=== PATIENT | female | born 1980 | race Caucasian/White ===

== ENCOUNTER 2016-05-08 09:56 | Emergency (ER) | payer BC ==
[~2016-05-08] VITALS: Ht 152.4 cm; Wt 85.0 kg
[~2016-05-08 09:56] MED LIST: ACET-1311; IBUP-1050; PRENTAB26
[2016-05-08 10:00] VITALS: Ht 152.4 cm; Wt 85.0 kg
[2016-05-08] MEDS ORDERED: ACET-1256 PO (10:15)
[2016-05-08] MEDS ORDERED: ONDANSETRON 4MG OD TAB PO STA (10:54)
[2016-05-08] MEDS ORDERED: OXYCODONE HCL IR 5 MG TAB (IMMEDIATE RELEASE) PO STA (10:54)
--- NOTE | 2016-05-08 10:57 | EMERGENCY ROOM VISIT NOTE ---
History Report prepared by Yeni: Cassidy Ibrahim Under the Supervision of: Dr. Tio Wilson D.O. First contact with patient: 10:24 Chief Complaint: BACK PAIN Stated Complaint: LOWER BACK PAIN LEFT SIDE History of Present Illness The patient is a 36 year old female who presents to the Emergency Room with complaints of constant left-sided flank pain for the past 2.5 hours. Her pain radiates into her left abdomen. She rates her pain as an 8/10 in severity. She notes fevers, chills, nausea, and two episodes of vomiting. The patient denies urinary symptoms and rash. She has had kidney stones in the past and states that this feels like her typical kidney stone. Her LNMP was a few months ago and she states that her chance for is slim due to PCOS. Source of History: patient Onset: 2.5 hours COOK FRY Position: other (left flank) Symptom Intensity: 8/10 Quality: other (radiating) Timing: constant Associated Symptoms: + abdominal pain, + chills, + fevers, + nausea, + vomiting, No rash, No urinary symptoms Review of Systems See above for pertinent positives & negatives. A total of 10 systems reviewed and were otherwise negative. Past Medical & Surgical Medical Problems: (1) Diabetes mellitus (2) History of kidney stones (3) PCOS (polycystic ovarian syndrome) Family History Diabetes mellitus Heart disease Social History Smoking Status: Never Smoker Smokeless Tobacco Use: No Alcohol Use: occasionally Marital Status: Housing Status: lives with significant other Occupation Status: employed Current/Historical Medications Scheduled Tamsulosin Hcl (Flomax), 0.4 MG PO DAILY Scheduled PRN Hydrocodon/Acetaminophen 5MG/300MG (Vicodin (5MG/300MG)), 2 TABS PO Q6H PRN for Pain Ibuprofen Tab (Motrin), 800 MG PO Q8H PRN for Pain Miscellaneous Medications Acetaminophen (Tylenol), 1,000 MG PO Allergies Coded Allergies: No Known Allergies (Verified , 05/08/16) Physical Exam Vital Signs Date Time Temp Pulse Resp B/P Pulse Ox O2 Delivery O2 Flow Rate FiO2 05/08/16 13:59 78 20 131/76 96 Room Air 05/08/16 11:51 66 20 127/80 97 Room Air 05/08/16 10:00 69 16 132/95 98 Physical Exam GENERAL: Patient is well appearing and in no acute distress. HEENT: No acute trauma, normocephalic atraumatic, mucous membranes moist, no nasal congestion, no scleral icterus. NECK: No stridor, no adenopathy, no meningismus, trachea is midline. LUNGS: No dyspnea. Clear to auscultation and equal bilaterally. No wheeze, no rhonchi. HEART: Regular rate and rhythm. No murmurs, rubs, gallops appreciated. ABDOMEN: Soft, nontender, bowel sounds positive, no masses appreciated, no peritonitis. BACK: No midline tenderness, no CVA tenderness, mild tenderness to palpation over the left flank. EXTREMITIES: Normal motion all extremities, no cyanosis, no edema. NEUROLOGIC: Alert and oriented, no acute motor or sensory deficits, no focal weakness, cranial nerves grossly intact. SKIN: No rash, no jaundice, no diaphoresis. Medical Decision & Procedures ER Provider Diagnostic Interpretation: Radiology results as stated below per my review and radiologist interpretation: ABDOMEN AND PELVIS CT WITHOUT CONTRAST CT DOSE: 1061.02 mGycm HISTORY: Flank pain r/o stone TECHNIQUE: Multiaxial CT images of the abdomen and pelvis were performed without the use of intravenous and oral contrast according to the standard department stone protocol. COMPARISON STUDY: None. FINDINGS: Mild dependent bibasilar atelectatic change. Configuration of liver spleen and pancreas appear unremarkable. Right kidney is negative for calcification or hydronephrosis. Left kidney shows moderate hydroureteronephrosis. There is a 5 mm obstructing mid left ureteral calculus. Bladder is midline. Uterus is anteflexed. There are no significant bladder calcifications. Bowel pattern is nonobstructive. The appendix is normal. IMPRESSION: 1. Obstructing calculus proximal to mid left ureter measuring 5 mm. 2. Moderate left hydroureteronephrosis. Electronically signed by: Sudheer Cazares M.D. 05/08/2016 11:21 AM Dictated Date/Time: 05/08/2016 11:18 AM Laboratory Results 05/08/16 12:15 Test 05/08/16 10:13 05/08/16 12:15 Urine Color DK YELLOW Urine Appearance TURBID (CLEAR) Urine pH 5.0 (4.5-7.5) Urine Specific [place] 1.027 (1.000-1.030) Urine Protein 1+ (NEG) Urine Glucose (UA) NEG (NEG) Urine Ketones NEG (NEG) Urine Occult Blood 3+ (NEG) Urine Nitrite NEG (NEG) Urine Bilirubin NEG (NEG) Urine Urobilinogen NEG (NEG) Urine Leukocyte Esterase SMALL (NEG) Urine WBC (Auto) 10-30 /hpf (0-5) Urine RBC (Auto) >30 /hpf (0-4) Urine Hyaline Casts (Auto) 1-5 /lpf (0-5) Urine Epithelial Cells (Auto) >30 /lpf (0-5) Urine Bacteria (Auto) 1+ (NEG) Urine Pathogenic Casts /lpf (0) Urine Mucus PRESENT (NONE PRSENT) Urine Yeast (Auto) (NONE PRSENT) Urine Test NEG (NEG) Anion Gap 10.0 mmol/L (3-11) Est Creatinine Clear Calc Drug Dose 62.1 ml/min Estimated GFR () 66.9 Estimated GFR (Non- 57.7 BUN/Creatinine Ratio 14.3 (10-20) Calcium Level 9.1 mg/dl (8.5-10.1) Laboratory results as reviewed by me. Medications Administered Medications (Trade) Dose Ordered Sig/Luigi Route Start Time Stop Time Status Last Admin Dose Admin Ondansetron HCl (Zofran Odt) 4 mg NOW STAT PO 05/08/16 10:54 05/08/16 10:55 DC 05/08/16 11:07 4 MG Oxycodone HCl (Roxicodone Immediate Rel Tab) 5 mg NOW STAT PO 05/08/16 10:54 05/08/16 10:55 DC 05/08/16 11:07 5 MG Hydromorphone HCl 0.5 mg 0.5 mg STK-MED ONCE .ROUTE 05/08/16 12:14 05/08/16 12:17 DC 05/08/16 12:14 0.5 MG Sodium Chloride (Nss 1000ml) 1,000 ml @ 999 mls/hr Q1H1M IV 05/08/16 12:30 05/08/16 14:30 DC 05/08/16 12:30 999 MLS/HR Ketorolac Tromethamine (Toradol Inj) 30 mg NOW STAT IV 05/08/16 12:17 05/08/16 12:19 DC 05/08/16 12:27 30 MG Promethazine HCl (Phenergan Inj) 25 mg NOW STAT IM 05/08/16 12:17 05/08/16 12:19 DC 05/08/16 12:29 25 MG ED Course 1030: The patient was evaluated in room A3. A complete history and physical exam was performed. 1054: Oxycodone HCl 5 mg PO, Zofran 4 mg PO 1214: I updated the patient on her CT results. She is now agreeable to an IV. She is requesting more pain medication due to worsening pain. 1217: Phenergan 25 mg IM, Dilaudid 0.5 mg IV, Toradol 30 mg IV 1230: NSS 1000 ml @ 999 mls/hr IV 1445: I reassessed the patient at this time. She is feeling better and resting comfortably. I discussed the results and treatment plan with the patient. I answered all pertaining questions that she had. She expressed understanding and verbalized agreement. The patient will be discharged home. Medical Decision Differential: Renal Colic, Pyelonephritis, Hydronephrosis, Appendicitis, Diverticulitis, Retroperitoneal Bleed/Infection, Aortic Pathology, MSK, Neurologic Pathology, amongst other pathologies entertained. Impression Primary Impression: Renal colic Additional Impression: Nausea & vomiting Scribe Attestation The scribe's documentation has been prepared under my direction and personally reviewed by me in its entirety. I confirm that the note above accurately reflects all work, treatment, procedures, and medical decision making performed by me. Departure Information Dispostion Home / Self-Care Prescriptions Ibuprofen Tab (MOTRIN) 800 Mg Tab 800 MG PO Q8H Y for Pain, #60 TAB Prov: Tio Wilson D.OTyler 05/08/16 Tamsulosin Hcl (FLOMAX) 0.4 Mg Cap 0.4 MG PO DAILY, #10 CAP Prov: Tio Wilson D.OTyler 05/08/16 Hydrocodon/Acetaminophen 5MG/300MG (VICODIN (5MG/300MG)) 1 Tab Tab 2 TABS PO Q6H Y for Pain, #20 TAB Prov: Tio Wilson D.O. 05/08/16 Referrals No Doctor, Assigned (PCP) Gin Mathew MD Follow-up in 1-2 weeks if you have not passed your kidney stone Forms HOME CARE DOCUMENTATION FORM, IMPORTANT VISIT INFORMATION Patient Instructions Kidney Stones, My [facility] Additional Instructions Strain all your urine. Return for fevers, inability to keep fluids down, or any other concerns. After still having issues in 1-2 weeks follow-up with urology as noted above. Work Instructions Return To Work: 1 day Problem Qualifiers Additional Impression: Nausea & vomiting Vomiting type: unspecified Vomiting Intractability: non-intractable Qualified Codes: R11.2 - Nausea with vomiting, unspecified
[2016-05-08 11:02] LABS: MANUAL MICROSCOPIC REQUIRED? NO; REVIEW REQ? YES; URINE APPEARANCE TURBID (CLEAR); URINE BILIRUBIN NEG (NEG); URINE COLOR DK YELLOW; URINE EPITHELIAL CELL AUTO >30 /lpf (0-5); URINE NITRITE NEG (NEG); URINE SPECIFIC GRAVITY 1.027 (1.000-1.030); UROBILINOGEN NEG (NEG)
[2016-05-08 11:14] LABS: PREG INTERNAL NEGATIVE QC NEG CLEAR BACKGROUND; PREG INTERNAL POSITIVE QC POS CONTROL LINE
[2016-05-08 11:18] LABS: URINE MUCUS PRESENT (NONE PRSENT)
--- NOTE | 2016-05-08 11:22 | DIAGNOSTIC IMAGING REPORT ---
ABDOMEN AND PELVIS CT WITHOUT CONTRAST CT DOSE: 1061.02 mGycm HISTORY: Flank pain r/o stone TECHNIQUE: Multiaxial CT images of the abdomen and pelvis were performed without the use of intravenous and oral contrast according to the standard department stone protocol. COMPARISON STUDY: None. FINDINGS: Mild dependent bibasilar atelectatic change. Configuration of liver spleen and pancreas appear unremarkable. Right kidney is negative for calcification or hydronephrosis. Left kidney shows moderate hydroureteronephrosis. There is a 5 mm obstructing mid left ureteral calculus. Bladder is midline. Uterus is anteflexed. There are no significant bladder calcifications. Bowel pattern is nonobstructive. The appendix is normal. IMPRESSION: 1. Obstructing calculus proximal to mid left ureter measuring 5 mm. 2. Moderate left hydroureteronephrosis. Electronically signed by: Sudheer Cazares M.D. 05/08/2016 11:21 AM Dictated Date/Time: 05/08/2016 11:18 AM
[2016-05-08] MEDS ORDERED: HYDROmorphone INJ 0.5 MG/0.5 ML SYR ONE (12:14)
[2016-05-08] MEDS ORDERED: ONDANSETRON INJ 2 MG/ML 2 ML VIAL ONE (12:15)
[2016-05-08] MEDS ORDERED: PROMETHAZINE HCL INJ 25 MG/ML 1 ML VIAL IM STA (12:17)
[2016-05-08] MEDS ORDERED: HYDROmorphone INJ 0.5 MG/0.5 ML SYR IV STA (12:17)
[2016-05-08] MEDS ORDERED: KETOROLAC TROMETHAMINE 30 MG/ML VIAL IV STA (12:17)
[2016-05-08] MEDS ORDERED: SODIUM CHLORIDE 0.9% 1000ML 1,000 ML IV SCH (12:30)
[2016-05-08 12:48] LABS: BUN/CREATININE RATIO 14.3 (10-20); CALCIUM 9.1 mg/dl (8.5-10.1); CREATININE 1.2 mg/dl (0.60-1.20)
[2016-05-08] MEDS ORDERED: IBUP-1451 PO (14:59)
[2016-05-08] MEDS ORDERED: HYDR-3419 PO (14:59)
[2016-05-08] MEDS ORDERED: TAMS0.4C38 PO (14:59)
[2016-05-08 15:21] VITALS: BP 125/83; PULSE 80; O2SAT 98
== END 2016-05-08 15:23 | disposition home or self-care (01) ==
LOC: C.EDB 09:57 → C.EDA 15:23
DX: N23 Unspecified renal colic (principal); M54.5 Low back pain; R11.2 Nausea with vomiting, unspecified; R50.9 Fever, unspecified; R10.9 Unspecified abdominal pain; E11.9 Type 2 diabetes mellitus without complications; E28.2 Polycystic ovarian syndrome

== ENCOUNTER 2016-05-10 17:33 | Emergency (ER) | payer BC ==
[~2016-05-10] VITALS: Ht 165.1 cm; Wt 86.5 kg
[~2016-05-10 17:33] MED LIST changes: +ACET-1256 PO; -ACET-1311; +HYDR-3419 PO; -IBUP-1050; +IBUP-1451 PO; -PRENTAB26; +TAMS0.4C38 PO
[2016-05-10 17:37] VITALS: TEMP 37.4; Ht 165.1 cm; Wt 86.5 kg
[2016-05-10 18:10] LABS: BASO % 0.1 %; BASO ABS # 0.02 K/uL (0-0.2); COMPLETE YES; EOS % 0.4 %; HEMATOCRIT 36.7 % (37-47); IG% 0.2 %; LYMPH % 12.4 %; LYMPH ABS # 1.74 K/uL (1.2-3.4); MEAN CELL VOLUME 83.2 fL (80-100); MEAN CORPUSCULAR HGB CONC 34.9 g/dl (32-36); MEAN PLATELET VOLUME 10.4 fL (7.4-10.4); MONO % 8.1 %; NEUT % 78.8 %; PLATELET COUNT 290 K/uL (130-400); RED BLOOD COUNT 4.41 M/uL (4.2-5.4); WHITE BLOOD COUNT 13.99 K/uL (4.8-10.8)
[2016-05-10] MEDS ORDERED: SODIUM CHLORIDE 0.9% 1000ML 1,000 ML IV STA (18:18)
[2016-05-10] MEDS ORDERED: MoRPHine SULFATE 10 MG/ML CARP/VIAL IV STA (18:18)
[2016-05-10] MEDS ORDERED: ONDANSETRON INJ 2 MG/ML 2 ML VIAL IV STA ×2 (18:18→19:42)
[2016-05-10 18:29] LABS: CALCIUM 9.3 mg/dl (8.5-10.1); CREATININE 1.5 mg/dl (0.60-1.20); POTASSIUM 3.5 mmol/L (3.5-5.1)
[2016-05-10 18:44] LABS: PREG INTERNAL NEGATIVE QC NEG CLEAR BACKGROUND; PREG INTERNAL POSITIVE QC POS CONTROL LINE
[2016-05-10 18:46] LABS: URINE APPEARANCE CLEAR (CLEAR); URINE BILIRUBIN NEG (NEG); URINE COLOR YELLOW; URINE EPITHELIAL CELL AUTO >30 /lpf (0-5); URINE NITRITE NEG (NEG); URINE PH 5.5 (4.5-7.5); URINE SPECIFIC GRAVITY 1.014 (1.000-1.030); UROBILINOGEN NEG (NEG); ZZUR CULT IF INDIC CLEAN CATCH NO
[2016-05-10 18:47] LABS: MANUAL MICROSCOPIC REQUIRED? NO; REVIEW REQ? NO
--- NOTE | 2016-05-10 19:21 | DIAGNOSTIC IMAGING REPORT ---
RENAL ULTRASOUND HISTORY: Left ureteral stone. Left flank pain. COMPARISON: Abdomen and pelvis CT 05/08/2016. FINDINGS: Right kidney: 10.5 cm. No hydronephrosis. There is a right extra renal pelvis. Normal corticomedullary differentiation and cortical thickness. Left kidney: 10.6 cm. Mild left hydronephrosis, unchanged. The left ureter was obscured by overlying bowel gas. Normal corticomedullary differentiation and cortical thickness. Bladder: No bladder wall thickening. Only the right ureteral jet was identified. IMPRESSION: 1. Normal right kidney. 2. No change in the mild left hydronephrosis. Electronically signed by: Mansoor Leavitt M.D. 05/10/2016 7:20 PM Dictated Date/Time: 05/10/2016 7:18 PM
--- NOTE | 2016-05-10 19:26 | DIAGNOSTIC IMAGING REPORT ---
KUB HISTORY: Left flank pain. Follow-up stone. COMPARISON: Abdomen and pelvis CT 05/08/2016. FINDINGS: The bowel gas pattern is unremarkable. There are no dilated loops of small bowel to suggest an obstruction. There is a 5 mm stone adjacent to the left L3 transverse process. This likely has passed a few centimeters distal from the prior study. No renal calculi identified. No pneumoperitoneum or pneumatosis. IMPRESSION: A 5 mm proximal left ureteral stone which has likely passed a few centimeters distal from the prior abdomen and pelvis CT. Electronically signed by: Mansoor Leavitt M.D. 05/10/2016 7:25 PM Dictated Date/Time: 05/10/2016 7:24 PM
[2016-05-10] MEDS ORDERED: KETOROLAC TROMETHAMINE 30 MG/ML VIAL IV STA (19:42)
[2016-05-10] MEDS ORDERED: SODIUM CHLORIDE 0.9% 500ML 500 ML IV STA (19:42)
[2016-05-10] MEDS ORDERED: ONDA4TAB46 PO (21:05)
[2016-05-10] MEDS ORDERED: OXYC1TAB3 PO (21:05)
[2016-05-10] MEDS ORDERED: OXYCODONE IR HOME PACK PO ONE (21:15)
[2016-05-10] MEDS ORDERED: ONDANSETRON HOME PACK 4MG OD TAB PO ONE (21:15)
[2016-05-10 21:30] VITALS: BP 131/76; PULSE 79; O2SAT 98
--- NOTE | 2016-05-10 23:48 | EMERGENCY ROOM VISIT NOTE ---
History Report prepared by Yeni: Magdalene Modi Under the Supervision of: Dr. Johnathan Ewing D.O. First contact with patient: 18:03 Chief Complaint: KIDNEY STONE Stated Complaint: KIDNEY STONE History of Present Illness The patient is a 36 year old female who presents to the Emergency Room with complaints of persistent left flank pain that started 2 days ago. She was seen in the ED 2 days ago and a CT scan of her abdomen revealed a 5 mm kidney stone in her left kidney. She was prescribed extra strength Motrin and Vicodin, but every time she takes the Vicodin, she vomits afterward. The patient has taken one dose of the Flomax that she was prescribed. The pain is more concentrated in her abdomen than her back now when compared to 2 days ago. The patient has a history of a kidney stone in [id number], but her symptoms do not feel similar to when she had that stone. She states that she is experiencing more persistent nausea and vomiting with this stone. The patient has not checked for fevers. She denies pain or burning with urination. She does not follow with a urologist. Source of History: patient Onset: two days ago Position: other (left flank ) Timing: other (persistent) Associated Symptoms: + nausea, + vomiting, No urinary symptoms (pain or burning with urination) Review of Systems See HPI for pertinent positives & negatives. A total of 10 systems reviewed and were otherwise negative. Past Medical & Surgical Medical Problems: (1) Diabetes mellitus (2) History of kidney stones (3) PCOS (polycystic ovarian syndrome) Family History Diabetes mellitus Heart disease Social History Smoking Status: Never Smoker Alcohol Use: occasionally Marital Status: Housing Status: lives with significant other Occupation Status: employed Current/Historical Medications Scheduled Tamsulosin Hcl (Flomax), 0.4 MG PO DAILY Scheduled PRN Hydrocodon/Acetaminophen 5MG/300MG (Vicodin (5MG/300MG)), 2 TABS PO Q6H PRN for Pain Ibuprofen Tab (Motrin), 800 MG PO Q8H PRN for Pain Ondansetron Hcl (Zofran), 4 MG PO TID PRN for Nausea Oxycodone Immediate Rel Tab (Roxicodone Ir), 1-2 TAB PO Q4H PRN for Severe Pain Miscellaneous Medications Acetaminophen (Tylenol), 1,000 MG PO Allergies Coded Allergies: No Known Allergies (Verified , 05/10/16) Physical Exam Vital Signs Date Time Temp Pulse Resp B/P Pulse Ox O2 Delivery O2 Flow Rate FiO2 05/10/16 21:30 79 18 131/76 98 05/10/16 20:00 84 16 128/75 97 Room Air 05/10/16 17:37 37.4 89 18 120/75 96 Room Air Physical Exam GENERAL: alert, laying in bed, moderate distress, holding left side, non-toxic EYE EXAM: normal conjunctiva OROPHARYNX: no exudate, no erythema, lips, buccal mucosa, and tongue normal and mucous membranes are moist NECK: supple, no nuchal rigidity, no adenopathy, non-tender LUNGS: Clear to auscultation. Normal chest wall mechanics HEART: no murmurs, S1 normal and S2 normal ABDOMEN: abdomen soft, non-tender, normo-active bowel sounds, no masses, no rebound or guarding. BACK: Back is symmetrical on inspection and there is no deformity, no midline tenderness, no CVA tenderness. SKIN: no rashes and no bruising UPPER EXTREMITIES: upper extremities are grossly normal. LOWER EXTREMITIES: No pitting edema. NEURO EXAM: Normal sensorium, cranial nerves II-XII grossly intact, normal speech, no gross weakness of arms, no gross weakness of legs. Medical Decision & Procedures ER Provider Diagnostic Interpretation: Xray results per the radiologist and my interpretation. Other results have been interpreted by the radiologist and reviewed by me. KUB IMPRESSION: A 5 mm proximal left ureteral stone which has likely passed a few centimeters distal from the prior abdomen and pelvis CT. Electronically signed by: Mansoor Leavitt M.D. 05/10/2016 7:25 PM Dictated Date/Time: 05/10/2016 7:24 PM RENAL ULTRASOUND IMPRESSION: 1. Normal right kidney. 2. No change in the mild left hydronephrosis. Electronically signed by: Mansoor Leavitt M.D. 05/10/2016 7:20 PM Dictated Date/Time: 05/10/2016 7:18 PM Laboratory Results 05/10/16 18:00 Red Blood Count 4.41, Mean Corpuscular Volume 83.2, Mean Corpuscular Hemoglobin 29.0, Mean Corpuscular Hemoglobin Concent 34.9, Mean Platelet Volume 10.4, Neutrophils (%) (Auto) 78.8, Lymphocytes (%) (Auto) 12.4, Monocytes (%) (Auto) 8.1, Eosinophils (%) (Auto) 0.4, Basophils (%) (Auto) 0.1, Neutrophils # (Auto) 11.02, Lymphocytes # (Auto) 1.74, Monocytes # (Auto) 1.13, Eosinophils # (Auto) 0.05, Basophils # (Auto) 0.02 05/10/16 18:00 Test 05/10/16 17:54 05/10/16 18:00 Urine Color YELLOW Urine Appearance CLEAR (CLEAR) Urine pH 5.5 (4.5-7.5) Urine Specific [place] 1.014 (1.000-1.030) Urine Protein NEG (NEG) Urine Glucose (UA) NEG (NEG) Urine Ketones 1+ (NEG) Urine Occult Blood 3+ (NEG) Urine Nitrite NEG (NEG) Urine Bilirubin NEG (NEG) Urine Urobilinogen NEG (NEG) Urine Leukocyte Esterase NEG (NEG) Urine WBC (Auto) 1-5 /hpf (0-5) Urine RBC (Auto) >30 /hpf (0-4) Urine Hyaline Casts (Auto) 1-5 /lpf (0-5) Urine Epithelial Cells (Auto) >30 /lpf (0-5) Urine Bacteria (Auto) NEG (NEG) Urine Test NEG (NEG) White Blood Count 13.99 K/uL (4.8-10.8) Red Blood Count 4.41 M/uL (4.2-5.4) Hemoglobin 12.8 g/dL (12.0-16.0) Hematocrit 36.7 % (37-47) Mean Corpuscular Volume 83.2 fL (80-100) Mean Corpuscular Hemoglobin 29.0 pg (25-34) Mean Corpuscular Hemoglobin Concent 34.9 g/dl (32-36) Platelet Count 290 K/uL (130-400) Mean Platelet Volume 10.4 fL (7.4-10.4) Neutrophils (%) (Auto) 78.8 % Lymphocytes (%) (Auto) 12.4 % Monocytes (%) (Auto) 8.1 % Eosinophils (%) (Auto) 0.4 % Basophils (%) (Auto) 0.1 % Neutrophils # (Auto) 11.02 K/uL (1.4-6.5) Lymphocytes # (Auto) 1.74 K/uL (1.2-3.4) Monocytes # (Auto) 1.13 K/uL (0.11-0.59) Eosinophils # (Auto) 0.05 K/uL (0-0.5) Basophils # (Auto) 0.02 K/uL (0-0.2) RDW Standard Deviation 40.7 fL (36.4-46.3) RDW Coefficient of Variation 13.4 % (11.5-14.5) Immature Granulocyte % (Auto) 0.2 % Immature Granulocyte # (Auto) 0.03 K/uL (0.00-0.02) Anion Gap 12.0 mmol/L (3-11) Est Creatinine Clear Calc Drug Dose 55.8 ml/min Estimated GFR () 51.1 Estimated GFR (Non- 44.0 BUN/Creatinine Ratio 8.0 (10-20) Calcium Level 9.3 mg/dl (8.5-10.1) Total Bilirubin 0.6 mg/dl (0.2-1) Direct Bilirubin 0.1 mg/dl (0-0.2) Aspartate Amino Transf (AST/SGOT) 19 U/L (15-37) Alanine Aminotransferase (ALT/SGPT) 30 U/L (12-78) Alkaline Phosphatase 64 U/L (45-117) Total Protein 8.4 gm/dl (6.4-8.2) Albumin 4.2 gm/dl (3.4-5.0) Lipase 127 U/L (73-393) Laboratory results per my review. Medications Administered Medications (Trade) Dose Ordered Sig/Luigi Route Start Time Stop Time Status Last Admin Dose Admin Sodium Chloride (Nss 1000ml) 1,000 ml @ 999 mls/hr Q1H1M STAT IV 05/10/16 18:18 05/10/16 19:18 DC 05/10/16 18:28 999 MLS/HR Ondansetron HCl (Zofran Inj) 4 mg NOW STAT IV 05/10/16 18:18 05/10/16 18:19 DC 05/10/16 18:40 4 MG Morphine Sulfate 6 mg 6 mg NOW STAT IV 05/10/16 18:18 05/10/16 18:19 DC 05/10/16 18:40 6 MG Sodium Chloride (Nss 500ml) 500 ml @ 999 mls/hr Q31M STAT IV 05/10/16 19:42 05/10/16 20:12 DC 05/10/16 19:56 999 MLS/HR Ondansetron HCl (Zofran Inj) 4 mg NOW STAT IV 05/10/16 19:42 05/10/16 19:44 DC 05/10/16 19:54 4 MG Ketorolac Tromethamine (Toradol Inj) 15 mg NOW STAT IV 05/10/16 19:42 05/10/16 19:44 DC 05/10/16 19:54 15 MG Oxycodone HCl (Roxicodone Immediate Rel 5MG Home Pack) 1 homepack UD ONCE PO 05/10/16 21:15 05/10/16 21:16 DC 05/10/16 21:24 1 HOMEPACK Ondansetron HCl (ZOFRAN ODT 4MG Home Pack) 1 homepack UD ONCE PO 05/10/16 21:15 05/10/16 21:16 DC 05/10/16 21:24 1 HOMEPACK ED Course ED COURSE: Vital signs were reviewed and showed normal. The patients medical record was reviewed The above diagnostic studies were performed and reviewed. ED treatments and interventions as stated above. 1810: The patient was evaluated in room C12. A complete history and physical examination was performed. 1817: Ordered Morphine Sulfate 6 mg IV, Zofran Inj 4 mg IV, Sodium Chloride 1000 ml @ 999 mls/hr IV 1930: I reassessed the patient and she is feeling much better. She is going to get more fluids. 1941: Ordered Toradol Inj 15 mg IV, Zofran Inj 4 mg IV, Sodium Chloride 500 ml @ 999 mls/hr IV 2053: Upon reevaluation, the patient is doing better. I discussed my findings with the patient and she understands and agrees with the treatment plan. Based on the patients age, coexisting illnesses, exam and lab findings the decision to treat as an outpatient was made. The patient remained stable while under my care. The patient appeared well at the time of discharge. 2114: Ordered Ondansetron HCl 1 homepack PO, Oxycodone HCl 1 homepack PO Medical Decision Differential diagnoses includes but is not limited to gastritis, peptic ulcer disease, GERD, gallbladder disease, pancreatitis, small bowel obstruction, acute coronary syndrome, pericarditis, ischemic bowel, irritable bowel disease, irritable bowel syndrome, appendicitis, diverticulitis, malignancy, hernia, urinary tract infection, torsion, /ectopic , perforation, trauma, infectious. Patient is a 36-year-old female who presents the ER for worsening left flank pain associated with nausea vomiting. She is here several days ago and diagnosed on Friday with a 5 mm kidney stone. Vitals are unremarkable. Labs show a leukocytosis of 14,000, BMP showed a creatinine of 1.5, bilirubin, AST/ALTs and lipase. UA was unremarkable. Urine was negative. Patient was given IV narcotics along with Zofran and felt significant better. KUB shows the stone has likely moved. Ultrasound shows no significant hydro-. UA again had no infection. Patient was updated at bedside and was discharged follow-up with her primary care doctor in urology as previously set up by her initial ER visit. Patient did note that she gets sick each time that she takes the Vicodin and consequently switch her to OxyIR. I instructed her not take the Vicodin anymore. Discussed with Pt concerning signs and symptoms to watch out for. Pt was instructed to follow up with their PCP and discussed with the patient their option to return to the ED at anytime for persistent or worsening symptoms. The appropriate anticipatory guidance and out-patient management, including indications for return to the emergency department, were explained at length to the patient and understood. Impression Primary Impression: Renal colic Additional Impression: Leukocytosis Scribe Attestation The scribe's documentation has been prepared under my direction and personally reviewed by me in its entirety. I confirm that the note above accurately reflects all work, treatment, procedures, and medical decision making performed by me. Departure Information Dispostion Home / Self-Care Prescriptions Ondansetron Hcl (ZOFRAN) 4 Mg Tab 4 MG PO TID Y for Nausea, #30 TAB Prov: Johnathan Ewing, DO 05/10/16 Oxycodone Immediate Rel Tab (ROXICODONE IR) 5 Mg Tab 1-2 TAB PO Q4H Y for Severe Pain, #24 TAB Prov: Johnathan Ewing, DO 05/10/16 Referrals No Doctor, Assigned (PCP) Forms HOME CARE DOCUMENTATION FORM, IMPORTANT VISIT INFORMATION Patient Instructions ED Stone Renal W Colic, My [facility] Additional Instructions Please follow up with your primary care doctor with in the next 24 hours. Any worsening of your symptoms, please return to the ED immediately. This includes fevers greater than 100.4, worsening pain, persistent nausea vomiting, or any other concerning signs or symptoms from your standpoint. You were given medications during this visit that will inhibit your ability to drive, operate machinery and work. Please do NOT drive, operate machinery or work for the next 12hrs. You were also given a prescription for a narcotic/ OxyIR. While taking this medication you should also not drive, operate machinery and or work. Do not take this in combination with Vicodin. Problem Qualifiers Additional Impression: Leukocytosis Leukocytosis type: unspecified Qualified Codes: D72.829 - Elevated white blood cell count, unspecified
== END 2016-05-10 21:35 | disposition home or self-care (01) ==
LOC: C.EDB 17:34 → C.EDC 21:35
DX: N23 Unspecified renal colic (principal); D72.829 Elevated white blood cell count, unspecified; E11.9 Type 2 diabetes mellitus without complications; Z83.3 Family history of diabetes mellitus; Z79.899 Other long term (current) drug therapy

== ENCOUNTER → 2017-03-04 | Outpatient (CLI) | payer BC, OTHER ==
[~2017-03-04] MED LIST changes: +CLR10 PO; -HYDR-3419 PO; -IBUP-1451 PO; +PREN1TAB29; +RANITAB33 PO; -TAMS0.4C38 PO
== END | disposition home or self-care (01) ==
LOC: C.LAB1850 16:53
PROVIDERS: ATTEND Obstetrics & Gynecology
DX: Z32.00 Encounter for pregnancy test, result unknown (principal)

== ENCOUNTER → 2017-03-21 | Outpatient (CLI) | payer OTHER ==
[2017-03-21 17:54] LABS: URINE APPEARANCE CLEAR (CLEAR); URINE BACTERIA AUTO NEG (NEG); URINE BILIRUBIN NEG (NEG); URINE BLOOD HGB NEG (NEG); URINE COLOR YELLOW; URINE EPITHELIAL CELL AUTO >30 /lpf (0-5); URINE GLUCOSE(DIPSTICK) NEG (NEG); URINE KETONES TRACE (NEG); URINE LEUKOCYTE ESTERASE MODERATE (NEG); URINE NITRITE NEG (NEG); URINE PROTEIN(DIPSTICK) NEG (NEG); URINE RBC AUTO 0-4 /hpf (0-4); URINE SPECIFIC GRAVITY 1.011 (1.000-1.030); UROBILINOGEN NEG (NEG)
[2017-03-21 18:03] LABS: MANUAL MICROSCOPIC REQUIRED? NO; REVIEW REQ? NO
== END | disposition home or self-care (01) ==
LOC: C.LABSPEC 17:25
DX: O09.522 Supervision of elderly multigravida, second trimester (principal); Z3A.00 Weeks of gestation of pregnancy not specified

== ENCOUNTER → 2017-03-25 | Outpatient (CLI) | payer OTHER ==
[~2017-03-25] MED LIST changes: -CLR10 PO; -PREN1TAB29; -RANITAB33 PO
[2017-03-25 17:20] LABS: BASO % 0.3 %; BASO ABS # 0.03 K/uL (0-0.2); EOS % 0.6 %; EOS ABS # 0.06 K/uL (0-0.5); HEMOGLOBIN 11.9 g/dL (12.0-16.0); IG# 0.02 K/uL (0.00-0.02); LYMPH % 19.7 %; LYMPH ABS # 1.92 K/uL (1.2-3.4); MEAN CELL VOLUME 87.9 fL (80-100); MEAN CORPUSCULAR HEMOGLOBIN 30.7 pg (25-34); MONO % 8.6 %; MONO ABS # 0.84 K/uL (0.11-0.59); NEUT % 70.6 %; NEUT ABS # 6.87 K/uL (1.4-6.5); PLATELET COUNT 209 K/uL (130-400); RED CELL DISTRIBUTION WIDTH CV 13.7 % (11.5-14.5); RED CELL DISTRIBUTION WIDTH SD 44.3 fL (36.4-46.3); WHITE BLOOD COUNT 9.74 K/uL (4.8-10.8)
== END | disposition home or self-care (01) ==
LOC: C.LAB1850 15:37
PROVIDERS: ATTEND Obstetrics & Gynecology
DX: O09.521 Supervision of elderly multigravida, first trimester (principal); O24.419 Gestational diabetes mellitus in pregnancy, unspecified control

== ENCOUNTER → 2017-03-25 | Outpatient (CLI) | payer OTHER | END | disposition home or self-care (01) | LOC: C.PAPS 10:07 | PROVIDERS: ATTEND Obstetrics & Gynecology | DX: O24.419 Gestational diabetes mellitus in pregnancy, unspecified control (principal) ==

== ENCOUNTER → 2017-05-20 | Outpatient (CLI) | payer OTHER ==
[2017-05-20 17:37] LABS: HEMATOCRIT 34.9 % (37-47); HEMOGLOBIN 11.9 g/dL (12.0-16.0)
== END | disposition home or self-care (01) ==
LOC: C.LAB1850 16:25
PROVIDERS: ATTEND Obstetrics & Gynecology
DX: O09.523 Supervision of elderly multigravida, third trimester (principal); Z3A.00 Weeks of gestation of pregnancy not specified

== ENCOUNTER → 2017-07-09 | Outpatient (CLI) | payer OTHER | END | disposition home or self-care (01) | LOC: C.LABSPEC 17:41 | PROVIDERS: ATTEND Obstetrics & Gynecology | DX: O09.523 Supervision of elderly multigravida, third trimester (principal) ==